=== PATIENT | male | born 1970 | race African-American/Black ===

== ENCOUNTER 2024-11-24 11:31 | Emergency (ER) | payer MEDICAID ==
[~2024-11-24] VITALS: Ht 175.3 cm; Wt 100.0 kg
[2024-11-24 11:35] VITALS: O2SAT 97
[2024-11-24] MEDS: KETOROLAC 30MG/ML VIAL IM ONE (12:04)
[2024-11-24] MEDS: LIDOCAINE 5% PATCH TOP STA (12:05)
[2024-11-24] MEDS: CYCLOBENZAPRINE 10MG TABLET PO ONE (12:06)
[2024-11-24] MEDS ORDERED: CYCL10TA21 MT (12:45)
[2024-11-24] MEDS ORDERED: KETO10TA2 MT (12:45)
[2024-11-24] MEDS ORDERED: LIDO700A30 TP (12:45)
[2024-11-24 12:51] VITALS: BP 126/79; PULSE 77; RESP 18; TEMP 36.6; O2SAT 100
== END 2024-11-24 12:52 | disposition home or self-care (01) ==
LOC: ER 11:31
DX: M79.10 Myalgia, unspecified site (principal); M54.6 Pain in thoracic spine; Z79.899 Other long term (current) drug therapy; Z88.0 Allergy status to penicillin
CPT/HCPCS: 99283; 96372; J1885